=== PATIENT | male | born 1975 | race Caucasian/White ===

== ENCOUNTER → 2018-09-19 10:11 | Outpatient (CLI) | payer OTHER, SELFPAY ==
[2015-05-26 10:28] VITALS: BMI 20.5
== END ==
PROVIDERS: Referring Provider Dermatology; Visit Provider Dermatology
DX: A49.02 Methicillin resistant Staphylococcus aureus infection, unspecified site (principal)
CPT/HCPCS: 87070; 87077; 87186; 87205

== ENCOUNTER → 2021-10-26 | Outpatient (CLI) | payer BC, SELFPAY | END | disposition home or self-care (01) | PROVIDERS: Referring Provider Otolaryngology; Visit Provider Otolaryngology | DX: H66.41 Suppurative otitis media, unspecified, right ear (principal) | CPT/HCPCS: 87070; 87075; 87205 ==

== ENCOUNTER 2022-09-29 13:43 | Emergency (ER) | payer OTHER, SELFPAY ==
[2022-09-29 13:45] VITALS: BP 126/87; PULSE 60; RESP 16; TEMP 36.6; O2SAT 100
[2022-09-29 13:46] VITALS: BMI 25.0
--- NOTE | 2022-09-29 15:28 | EX.ED.DYSGE1 ---
HPI History of Present Illness Chief Complaint: Cellulitis Narrative Narrative: 46-year-old male with history of HIV on his medications presenting with cellulitis on his right ear which is recurrent. He states he has a history of MRSA. Patient usually responds to Bactrim. He uses bacitracin and antibiotic soap regularly. He states he [facility] Patient denies any fevers. He does feel like he has chills. He states his body feels like it is on fire. [facility] Medical History (Updated 09/29/22 @ 15:57 by Enid Keating) HIV (human immunodeficiency virus infection) MRSA (methicillin resistant Staphylococcus aureus) Home Medications amoxicillin 500 mg tablet 125 mg PO Q12H 09/02/13 [History Last Taken Unknown] hydrocodone-acetaminophen 5-325mg 5mg-325mg 1 - 2 tab PO Q4H PRN PRN Pain ##20 05/26/15 [Rx Last Taken Unknown] naproxen 500 mg tablet 500 mg PO BID PRN #20 tabs 05/26/15 [Rx Last Taken Unknown] sulfamethoxazole 800 mg-trimethoprim 160 mg tablet (Bactrim DS) 1 tab PO BID #20 tabs 09/29/22 [Rx Last Taken Unknown] Allergy/AdvReac Type Severity Reaction Status Date / Time No Known Allergies Allergy Verified 09/29/22 13:43 Social History Smoking Status: Current every day smoker tobacco type: cigarettes ROS ROS ED Constitutional Constitutional ED: Reports chills; Denies fever(s) Eyes Eyes: Denies change in vision or diplopia ENT ENT ED: Denies rhinorrhea or sore throat Cardiovascular Cardiovascular: Denies chest pain or palpitations Respiratory/Chest Respiratory/Chest: Denies cough or dyspnea Gastrointestinal Gastrointestinal: Denies abdominal pain Genitourinary Genitourinary ED: Denies dysuria or hematuria Musculoskeletal Musculoskeletal: Denies arthralgias Integumentary Denies abscess or Abrasions Neurologic Neurologic: Denies headache(s) Psychiatric Psychiatric: Denies anxiety or depression EXAM Physical Exam Const Vital Signs: 09/29/22 13:45 09/29/22 17:00 09/29/22 19:00 Temperature 97.8 F Temperature Source Temporal Pulse Rate 60 89 85 Respiratory Rate 16 17 18 Blood Pressure 126/87 H 124/79 H 122/73 H Blood Pressure Mean 100 94 89 Pulse Ox 100 98 99 Oxygen Delivery Method Room Air Room Air Room Air 09/29/22 19:02 Temperature 98.1 F Temperature Source Pulse Rate 84 Respiratory Rate 16 Blood Pressure 118/76 Blood Pressure Mean Pulse Ox 99 Oxygen Delivery Method Positive well nourished HEENT Reports moist mucous membranes HEENT Narrative: Erythema and swelling of the right ear. There is a small blister at the very top of this. Eyes PERRL Chest Wall inspection of chest normal and palpation of chest normal Resp normal respiratory effort and clear to auscultation bilaterally Auscultation: Negative for rales, rhonchi or wheezes Cardio regular rate and regular rhythm Neuro oriented x3 and CN's II-XII intact bilaterally Sensorium / Orientation: alert Motor Exam: strength 5/5 throughout Psych mental status grossly normal Skin Skin Narrative: As described above MDM MDM MDM Narrative Medical decision making narrative: Patient seen and evaluated on arrival. Vital signs are stable and he is afebrile. He is well-appearing. Patient has a small blister on the right ear and some erythema on the top of the ear. I suspect he has right ear cellulitis. I was going to put him on Bactrim. The patient request that his ear be cultured, and he had basic lab work done because he has a history of HIV. Patient is given IV Toradol. CBC to assess once count, hemoglobin, platelets, differential. BMP to assess renal function, electrolytes. CBC and BMP are unremarkable. Patient's wound was cultured. He understands this will not come back right away. He is started on Bactrim. First dose given in the ER. He is to continue use bacitracin. Follow-up with ENT. Impression: 1. Cellulitis right ear Lab Data Labs: Laboratory Results - last 24 hr 09/29/22 09/29/22 09/29/22 15:45 15:45 18:10 WBC 7.7 RBC 4.74 Hgb 15.0 Hct 44.0 MCV 92.8 MCH 31.6 MCHC 34.1 RDW Std Deviation 44.6 H RDW Coeff of Jaye 12.9 Plt Count 262 MPV 8.8 Immature Gran % (Auto) 0.300 Neut % (Auto) 52.5 Lymph % (Auto) 37.3 Harmon % (Auto) 7.0 Eos % (Auto) 2.0 Baso % (Auto) 0.9 Absolute Neuts (auto) 4.0 Absolute Lymphs (auto) 2.86 Nucleated RBC % 0 Sodium Cancelled 139 Potassium Cancelled 3.9 Chloride Cancelled 103 Carbon Dioxide Cancelled 32.0 Anion Gap Cancelled 4 L BUN Cancelled 8 Creatinine Cancelled 1.09 Estim Creat Clear Calc Cancelled 82.80 Est GFR (MDRD) Af Amer Cancelled 94 Est GFR (MDRD) Non-Af Cancelled 77 BUN/Creatinine Ratio Cancelled 7.3 L Glucose Cancelled 96 Calcium Cancelled 9.5 Discharge Plan Triage Chief Complaint: Cellulitis ED Provider: Magdiel Bullock Dx/Rx/DC Orders Instructions: Cellulitis Dc Prescriptions: New sulfamethoxazole-trimethoprim [Bactrim DS] 800-160 mg tablet 1 tab PO BID Qty: 20 0RF No Action amoxicillin 500 MG tablet 125 mg PO Q12H hydrocodone-acetaminophen 1 TABLET tablet 1 - 2 tab PO Q4H PRN PRN (Reason: Pain) Qty: 20 0RF naproxen 500 MG tablet 500 mg PO BID PRN Qty: 20 0RF [facility] Referrals: Lebron Rebollar MD [Med Staff - Active Staff] - 3-5 Days [facility] [Primary Care Provider] - Disposition Disposition: Home, Self Care Discharge Date/Time: 09/29/22 19:16
[2022-09-29] MEDS: Ketorolac 15 MG/ML Vial IV (15:44)
[2022-09-29 15:59] LABS: Absolute Lymphocyte Count 2.86 X10^3/uL (0.83-4.51); Basophil# 0.07 X10^3/uL; Basophil% 0.9 % (0-1); Eosinophil# 0.15 X10^3/uL; Lymphocyte # 2.86 X10^3/ul (0.83-4.51); Lymphocyte % 37.3 % (19-41); Mean Corp Hgb Conc 34.1 g/dL (32-36); Mean Corpuscular Hgb 31.6 pg (27.0-32.0); Mean Corpuscular Volume 92.8 fL (80-94); Mean Platelet Vol. 8.8 fl (6.2-12.0); Monocyte# 0.54 X10^3/uL; NRBC Flagged by Analyzer 0 % (0-5); Neutrophil # 4.02 X10^3/uL (2.7-7.7); Neutrophil % 52.5 % (47-70); Platelet Count 262 K/mm3 (150-450); RBC Distribution Width CV 12.9 % (11.6-14.6); RBC Distribution Width SD 44.6 fl (35.1-43.9); Red Blood Count 4.74 M/mm3 (4.6-6.2); White Blood Count 7.7 K/mm3 (4.4-11.0)
[2022-09-29 17:00] VITALS: BP 124/79; PULSE 89; RESP 17; O2SAT 98
[2022-09-29 18:29] LABS: Anion Gap 4 (5-15); BUN 8 mg/dL (7-18); BUN/Creat Ratio 7.3 RATIO (10-20); Calcium,Total 9.5 mg/dL (8.5-10.1); Chloride 103 mmol/L (98-107); Creatinine, Serum 1.09 mg/dL (0.70-1.30); EST Glomerular Filtration Rate 77 mL/min (>60); Est Glom Filt Rate - Afr Amer 94 mL/min (>60); Glucose 96 mg/dL (74-106); Potassium 3.9 mmol/L (3.5-5.1); Sodium Level 139 mmol/L (136-145)
[2022-09-29 19:00] VITALS: BP 122/73; PULSE 85; RESP 18; O2SAT 99
[2022-09-29 19:02] VITALS: BP 118/76; PULSE 84; RESP 16; TEMP 36.7; O2SAT 99
[2022-09-29] MEDS: Smz/Tmp Ds Tablet 1 TABLET PO (19:11)
== END 2022-09-29 19:16 | disposition home or self-care (01) ==
PROVIDERS: Emergency Provider Student in an Organized Health Care Education/Training Program; Visit Provider Student in an Organized Health Care Education/Training Program
DX: H60.11 Cellulitis of right external ear (principal); B20 Human immunodeficiency virus [HIV] disease; F17.210 Nicotine dependence, cigarettes, uncomplicated; Z79.899 Other long term (current) drug therapy
CPT/HCPCS: 80048; 85025; 87070; 87075; 87077; 87205; 99284; A4216